=== PATIENT | female | born 1955 | race African-American/Black ===

== ENCOUNTER 2017-08-01 18:03 | Inpatient (IN) | payer MEDICARE, MEDICAID ==
[~2017-08-01] VITALS: Ht 172.7 cm; Wt 87.5 kg
[~2017-08-01 18:03] MED LIST: AMLO10TA4 PO; ATOR-2 PO; CHOL500010 PO; CITA20TA19 PO; GABA-531 PO; HYDR-4001 PO; HYDR25TA PO
[2017-08-01] MEDS ORDERED: ALBUTEROL (0.083%) 2.5MG/3ML NEB HHN STA (18:27)
[2017-08-01] MEDS ORDERED: ASPIRIN 81MG TABLET PO STA (18:27)
[2017-08-01] MEDS ORDERED: IPRATROPIUM BROMIDE (0.02%) 0.5MG/2.5ML NEB HHN STA (18:27)
[2017-08-01] MEDS ORDERED: METHYLPREDNISOLONE SOD SUCC 125 MG/2 ML VIAL IV STA (18:27)
[2017-08-01 18:57] LABS: BASOPHILS % 1.5 % (0.0-2.0); EOSINOPHILS % 6.2 % (0.0-5.0); HEMATOCRIT. 47.5 % (36.0-48.0); HEMOGLOBIN. 15.5 g/dL (12.0-16.0); LYMPHOCYTES % 20.5 % (20.0-50.0); MEAN CORPUSCULAR HEMOGLOBIN 28.9 pg (28.0-32.0); MEAN CORPUSCULAR VOLUME 88.3 fL (81.0-99.0); MEAN PLATELET VOLUME 8.2 fl (7.4-10.4); MONOCYTES % 9.8 % (2.0-8.0); PLATELET 238 x1000/uL (130-400); RED BLOOD CELL COUNT 5.37 mill/uL (4.2-5.4); RED CELL DISTRIBUTION WIDTH 14.5 % (11.6-14.6)
[2017-08-01 19:06] LABS: CHLORIDE 108 mEq/L (98-107)
[2017-08-01 19:12] LABS: TROPONIN I < 0.02 ng/mL (0.00-0.04)
[2017-08-01] MEDS ORDERED: IBUPROFEN 600MG TABLET PO ONE (21:00)
[2017-08-02] MEDS ORDERED: DOCUSATE SODIUM 100MG CAPSULE PO PRN (03:00)
[2017-08-02] MEDS ORDERED: BENZONATATE 100MG CAPSULE PO PRN (03:00)
[2017-08-02] MEDS ORDERED: MAGNESIUM/ALUMINUM HYDROXIDE/SIMETHICONE 30ML UDC PO PRN (03:00)
[2017-08-02] MEDS ORDERED: CLONIDINE 0.1MG TABLET PO PRN (03:00)
[2017-08-02] MEDS ORDERED: ONDANSETRON HCL 4MG/2ML VIAL IV PRN (03:00)
[2017-08-02] MEDS ORDERED: IPRATROPIUM/ALBUTEROL 0.5-3(2.5)MG/3ML NEB INH PRN (03:00)
[2017-08-02 03:45] VITALS: BP 153/69
[2017-08-02 04:00] VITALS: BP 153/69
[2017-08-02] MEDS: SODIUM CHLORIDE 0.9% INJ 3ML FLUSH IVF SCH ×3 (06:00→21:32)
[2017-08-02] MEDS: METHYLPREDNISOLONE SOD SUCC 125 MG/2 ML VIAL IV SCH ×3 (06:15→21:21)
[2017-08-02] MEDS: HYDROCODONE/ACETAMINOPHEN 10/325MG TABLET PO PRN ×2 (06:50→21:25)
[2017-08-02] MEDS: OMEPRAZOLE 20MG CAPSULE EXTENDED RELEASE PO SCH ×2 (07:15→21:21)
[2017-08-02 08:00] VITALS: BP 154/86
[2017-08-02] MEDS: CITALOPRAM HYDROBROMIDE 20MG TABLET PO SCH (08:36)
[2017-08-02] MEDS: GABAPENTIN 300MG CAPSULE PO SCH (08:37)
[2017-08-02] MEDS: AMLODIPINE 10MG TABLET PO SCH (08:37)
[2017-08-02] MEDS: GUAIFENESIN 200MG/10ML SUGAR FREE UDC PO PRN ×2 (08:40→21:32)
[2017-08-02] MEDS ORDERED: NICOTINE 14MG PATCH TD SCH (09:00)
[2017-08-02] MEDS: IPRATROPIUM/ALBUTEROL 0.5-3(2.5)MG/3ML NEB HHN SCH ×5 (09:05→23:31)
[2017-08-02 12:00] VITALS: BP 119/51
[2017-08-02 16:00] VITALS: BP 141/64
[2017-08-02 16:19] LABS: *AMPHETAMINES SCREEN URINE NEGATIVE (NEGATIVE); *BARBITURATES SCREEN URINE NEGATIVE (NEGATIVE); *BENZODIAZEPINES SCREEN URINE NEGATIVE (NEGATIVE); *COCAINE SCREEN URINE PRESUMTIVE POSITIVE (NEGATIVE); CANNABINOID URINE SCREEN NEGATIVE (NEGATIVE); METHADONE URINE SCREEN NEGATIVE (NEGATIVE); OPIATES URINE SCREEN NEGATIVE (NEGATIVE); PHENCYCLIDINE URINE SCREEN NEGATIVE (NEGATIVE)
[2017-08-02 20:00] VITALS: BP 142/61
[2017-08-02] MEDS: ATORVASTATIN CALCIUM 40MG TABLET PO SCH (21:21)
[2017-08-03] VITALS: BP 147/62
[2017-08-03] MEDS: IPRATROPIUM/ALBUTEROL 0.5-3(2.5)MG/3ML NEB HHN SCH ×5 (03:50→21:09)
[2017-08-03 04:00] VITALS: BP 145/62
[2017-08-03] MEDS: SODIUM CHLORIDE 0.9% INJ 3ML FLUSH IVF SCH ×3 (06:57→21:26)
[2017-08-03] MEDS: OMEPRAZOLE 20MG CAPSULE EXTENDED RELEASE PO SCH (06:57)
[2017-08-03] MEDS: METHYLPREDNISOLONE SOD SUCC 125 MG/2 ML VIAL IV SCH ×3 (06:57→21:26)
[2017-08-03 08:43] VITALS: BP 141/68
[2017-08-03] MEDS: AMLODIPINE 10MG TABLET PO SCH (09:39)
[2017-08-03] MEDS: CITALOPRAM HYDROBROMIDE 20MG TABLET PO SCH (09:40)
[2017-08-03] MEDS: GABAPENTIN 300MG CAPSULE PO SCH (09:40)
[2017-08-03] MEDS: ACETAMINOPHEN 325MG TABLET PO PRN (12:34)
[2017-08-03 12:46] VITALS: BP 166/51
[2017-08-03] MEDS: NICOTINE 14MG PATCH TD SCH (13:14)
[2017-08-03 16:40] VITALS: BP 128/64
[2017-08-03 20:00] VITALS: BP 136/67
[2017-08-03] MEDS: FAMOTIDINE 20MG TABLET PO SCH (21:26)
[2017-08-03] MEDS: HYDROCODONE/ACETAMINOPHEN 10/325MG TABLET PO PRN (21:26)
[2017-08-03] MEDS: ATORVASTATIN CALCIUM 40MG TABLET PO SCH (21:26)
[2017-08-03] MEDS: GUAIFENESIN 200MG/10ML SUGAR FREE UDC PO PRN (21:26)
[2017-08-04] MEDS: IPRATROPIUM/ALBUTEROL 0.5-3(2.5)MG/3ML NEB HHN SCH ×6 (01:05→20:43)
[2017-08-04] MEDS: DIPHENHYDRAMINE 50MG/ML VIAL IV PRN (02:58)
[2017-08-04 04:00] VITALS: BP 140/69
[2017-08-04] MEDS: SODIUM CHLORIDE 0.9% INJ 3ML FLUSH IVF SCH ×3 (06:23→21:17)
[2017-08-04] MEDS: METHYLPREDNISOLONE SOD SUCC 125 MG/2 ML VIAL IV SCH ×3 (06:24→21:16)
[2017-08-04 08:00] VITALS: BP 140/53
[2017-08-04 10:16] LABS: BG BASE EXCESS 1.5 mmol/L (-2.0-2.0); BG CARBOXYHEMOGLOBIN 0.5 % (0.5-1.5); BG DEOXYHEMOGLOBIN 2.7 % (0.0-5.0); BG FRACTION INSPIRED OXYGEN 32; BG HCO3 ACT 27.1 mmol/L (22.0-26.0); BG METHEMOGLOBIN 0.4 % (0.0-1.5); BG OXYGEN SATURATION 97.3 % (92.0-98.5); BG OXYHEMOGLOBIN 96.4 % (94.0-97.0); BG PCO2 46.3 mmHg (35.0-45.0); BG PH 7.386 (7.350-7.450); BG PO2 95.3 mmHg (75.0-100.0); BG SAMPLE SITE LEFT RADIAL; BG TOTAL HEMOGLOBIN 14.9 g/dL (12.0-18.0); BG VENT MODE NASAL CANNULA
[2017-08-04] MEDS: GABAPENTIN 300MG CAPSULE PO SCH (10:42)
[2017-08-04] MEDS: FAMOTIDINE 20MG TABLET PO SCH ×2 (10:42→21:16)
[2017-08-04] MEDS: AMLODIPINE 10MG TABLET PO SCH (10:43)
[2017-08-04] MEDS: CITALOPRAM HYDROBROMIDE 20MG TABLET PO SCH (11:00)
[2017-08-04] MEDS: NICOTINE 14MG PATCH TD SCH (11:01)
[2017-08-04] MEDS: ACETAMINOPHEN 325MG TABLET PO PRN (11:01)
[2017-08-04 12:00] VITALS: BP 139/90
[2017-08-04 16:00] VITALS: BP 135/72
[2017-08-04 20:00] VITALS: BP 137/79
[2017-08-04] MEDS: GUAIFENESIN 200MG/10ML SUGAR FREE UDC PO PRN (21:16)
[2017-08-04] MEDS: ATORVASTATIN CALCIUM 40MG TABLET PO SCH (21:16)
[2017-08-04] MEDS: HYDROCODONE/ACETAMINOPHEN 10/325MG TABLET PO PRN (21:17)
[2017-08-05] MEDS: IPRATROPIUM/ALBUTEROL 0.5-3(2.5)MG/3ML NEB HHN SCH ×4 (00:33→11:12)
[2017-08-05 04:00] VITALS: BP 140/83
[2017-08-05] MEDS: SODIUM CHLORIDE 0.9% INJ 3ML FLUSH IVF SCH ×2 (06:37→12:48)
[2017-08-05] MEDS: METHYLPREDNISOLONE SOD SUCC 125 MG/2 ML VIAL IV SCH ×2 (06:37→12:48)
[2017-08-05] MEDS: DIPHENHYDRAMINE 50MG/ML VIAL IV PRN (06:39)
[2017-08-05 08:13] VITALS: BP 146/86
[2017-08-05] MEDS: GABAPENTIN 300MG CAPSULE PO SCH (08:57)
[2017-08-05] MEDS: AMLODIPINE 10MG TABLET PO SCH (08:57)
[2017-08-05] MEDS: CITALOPRAM HYDROBROMIDE 20MG TABLET PO SCH (08:57)
[2017-08-05] MEDS: FAMOTIDINE 20MG TABLET PO SCH (08:57)
[2017-08-05] MEDS: NICOTINE 14MG PATCH TD SCH (08:58)
[2017-08-05 11:39] VITALS: BP 150/74
== END 2017-08-05 14:20 | disposition home or self-care (01) | DRG 193 ==
LOC: ER 18:25 → 6WST 19:58 → EDBEDREQ 20:04 → EDBEDREQTM 20:04 → ENRESERV 08-02 02:33
PROVIDERS: ADMIT Internal Medicine; ATTEND Internal Medicine
DX: J18.9 Pneumonia, unspecified organism (principal); J96.20 Acute and chronic respiratory failure, unspecified whether with hypoxia or hypercapnia; Z99.81 Dependence on supplemental oxygen; J44.0 Chronic obstructive pulmonary disease with (acute) lower respiratory infection; J44.1 Chronic obstructive pulmonary disease with (acute) exacerbation; E44.1 Mild protein-calorie malnutrition; J20.9 Acute bronchitis, unspecified; E78.5 Hyperlipidemia, unspecified; I10 Essential (primary) hypertension; F12.10 Cannabis abuse, uncomplicated; F14.10 Cocaine abuse, uncomplicated; F17.210 Nicotine dependence, cigarettes, uncomplicated; G89.29 Other chronic pain; M54.5 Low back pain; Z68.29 Body mass index [BMI] 29.0-29.9, adult
CPT/HCPCS: 36415; 36600; 71045; 80053; 80305; 82375; 82805; 83880; 84484; 85025; 85610; 85730; 93005; 94640; 94644; 94664; 96374; 96375; 99285; J1200; J2930; J7611; J7620